=== PATIENT | male | born 1960 | race Caucasian/White ===

== ENCOUNTER 2018-09-07 09:51 | Outpatient (CLI) | payer BC, SELFPAY ==
[2018-09-07 11:38] LABS: CREATININE 0.95 mg/dL (0.70-1.30); Cholesterol 220 mg/dL (50-200); Glucose 87 mg/dL (70-100); HDL Cholesterol 71 mg/dL (40-60); LDL CHOLESTEROL 129 mg/dL (<100); Potassium 5.3 mmol/L (3.5-5.1); Triglyceride 69 mg/dL (30-150)
[2018-09-10 10:14] LABS: PSA, Screening 0.8 ng/ml (0-3.5)
[2018-09-10 14:22] LABS: Hepatitis C Ab w Rflx HCV PCR Negative (NEGAT)
== END 2018-09-07 10:11 ==
PROVIDERS: PCP Family Medicine; Visit Provider Family Medicine
DX: Z00.00 Encounter for general adult medical examination without abnormal findings
CPT/HCPCS: 36415; 80061; 82947; 83721; 84153; 86803; 82565; 84132

== ENCOUNTER 2018-10-10 14:21 | Outpatient (CLI) | payer BC, SELFPAY ==
[2018-10-10 15:29] LABS: Potassium 4.4 mmol/L (3.5-5.1)
== END 2018-10-10 14:41 ==
PROVIDERS: PCP Family Medicine; Visit Provider Family Medicine
DX: E87.5 Hyperkalemia (principal)
CPT/HCPCS: 36415; 84132

== ENCOUNTER 2019-11-19 10:17 | Outpatient (CLI) | payer BC, SELFPAY ==
[2019-11-19 12:43] LABS: CREATININE 0.93 mg/dL (0.70-1.30); Calculated LDL 138 mg/dL (<100); Cholesterol 225 mg/dL (<200); HDL Cholesterol 77 mg/dL (40-60); Potassium 4.8 mmol/L (3.5-5.1); Triglyceride 50 mg/dL (<150)
== END 2019-11-19 10:37 ==
PROVIDERS: PCP Family Medicine; Visit Provider Family Medicine
DX: E78.5 Hyperlipidemia, unspecified (principal); I10 Essential (primary) hypertension
CPT/HCPCS: 36415; 80061; 82565; 84132

== ENCOUNTER 2020-02-11 07:49 | Outpatient (CLI) | payer BC, SELFPAY ==
[2020-02-14 11:26] LABS: Patient Race White; SARS-CoV-2 RNA Undetected (Undetected); SARS-CoV-2 Specimen Source Nasal
== END 2020-02-11 08:09 ==
PROVIDERS: PCP Family Medicine; Visit Provider Family Medicine
DX: Z11.59 Encounter for screening for other viral diseases (principal)
CPT/HCPCS: U0003

== ENCOUNTER 2020-03-03 02:32 | Outpatient (CLI) | payer BC, SELFPAY ==
[2020-03-05 18:02] LABS: Patient Race White; SARS-CoV-2 RNA Undetected (Undetected); SARS-CoV-2 Specimen Source Nasal
== END 2020-03-03 02:52 ==
PROVIDERS: PCP Family Medicine; Visit Provider Family Medicine
DX: Z11.59 Encounter for screening for other viral diseases (principal)
CPT/HCPCS: U0003

== ENCOUNTER 2020-11-20 10:11 | Outpatient (CLI) | payer BC, SELFPAY ==
[2020-11-20 13:24] LABS: CREATININE 0.9 mg/dL (0.70-1.30); Potassium 4.2 mmol/L (3.5-5.1)
== END 2020-11-20 10:12 | disposition home or self-care (01) ==
LOC: LOS 10:11
PROVIDERS: PCP Family Medicine; Visit Provider Family Medicine
DX: E11.65 Type 2 diabetes mellitus with hyperglycemia (principal); I10 Essential (primary) hypertension
CPT/HCPCS: 36415; 82565; 84132

== ENCOUNTER 2021-08-30 20:28 | Outpatient (REF) | payer BC, SELFPAY ==
[2021-09-01 11:22] LABS: COVID-19 RT-PCR UVMMC Result Positive (Negative)
== END 2021-08-30 20:29 | disposition home or self-care (01) ==
LOC: LBN 20:28
PROVIDERS: PCP Family Medicine; Visit Provider Family Medicine
DX: Z20.822 Contact with and (suspected) exposure to COVID-19 (principal); M79.18 Myalgia, other site
CPT/HCPCS: U0003

== ENCOUNTER 2022-03-17 15:35 | Outpatient (CLI) | payer BC, SELFPAY ==
[2022-03-17 16:13] LABS: CREATININE 0.9 mg/dL (0.70-1.30); Calculated LDL 162 mg/dL (<100); Cholesterol 264 mg/dL (<200); Estimated GFR 96.57 (mL/min/1.73m2); HDL Cholesterol 89 mg/dL (40-60); Potassium 4.3 mmol/L (3.5-5.1); Triglyceride 66 mg/dL (<150)
== END 2022-03-17 15:36 | disposition home or self-care (01) ==
LOC: LBO 15:36
PROVIDERS: PCP Family Medicine; Visit Provider Family Medicine
DX: I10 Essential (primary) hypertension (principal); E78.5 Hyperlipidemia, unspecified
CPT/HCPCS: 36415; 80061; 82565; 84132

== ENCOUNTER 2022-07-13 03:19 | Outpatient (CLI) | payer BC, SELFPAY ==
[2022-07-13 08:48] LABS: ALT 38 U/L (16-63); AST 19 U/L (15-37); CREATININE 0.9 mg/dL (0.70-1.30); Calculated LDL 87 mg/dL (<100); Cholesterol 172 mg/dL (<200); Estimated GFR 95.97 (mL/min/1.73m2); HDL Cholesterol 75 mg/dL (40-60); Potassium 4.2 mmol/L (3.5-5.1); Triglyceride 54 mg/dL (<150)
== END 2022-07-13 03:20 | disposition home or self-care (01) ==
LOC: LBO 03:21
PROVIDERS: PCP Family Medicine; Visit Provider Family Medicine
DX: I10 Essential (primary) hypertension (principal); E78.5 Hyperlipidemia, unspecified; K76.0 Fatty (change of) liver, not elsewhere classified
CPT/HCPCS: 36415; 80061; 82565; 84132; 84450; 84460

== ENCOUNTER 2023-04-04 03:50 | Outpatient (CLI) | payer BC, SELFPAY ==
[2023-04-04 08:30] LABS: Anion Gap 4.1 mmol/L (3-11); BUN 13 mg/dL (7-18); CO2 32.9 mmol/L (21.0-32.0); CREATININE 0.9 mg/dL (0.70-1.30); Calculated LDL 82 mg/dL (<100); Chloride 97 mmol/L (98-107); Cholesterol 185 mg/dL (<200); Estimated GFR 95.97 (mL/min/1.73m2); Glucose 93 mg/dL (74-106); HDL Cholesterol 88 mg/dL (40-60); Potassium 3.9 mmol/L (3.5-5.1); Sodium 134 mmol/L (136-145); Triglyceride 77 mg/dL (<150)
== END 2023-04-04 03:51 | disposition home or self-care (01) ==
PROVIDERS: PCP Family Medicine; Visit Provider Family Medicine
DX: E78.5 Hyperlipidemia, unspecified (principal); E87.1 Hypo-osmolality and hyponatremia
CPT/HCPCS: 36415; 80048; 80061

== ENCOUNTER 2023-07-07 11:32 | Outpatient (CLI) | payer BC, SELFPAY ==
[2023-07-07 12:48] LABS: Abs Immature Grans 0.04 10^3/uL (0.0-0.06); Absolute Basophil Count 0.09 10^3/uL (0.0-0.2); Absolute Eosinophil Count 0.21 10^3/uL (0.0-0.7); Absolute Lymphocyte Count 1.86 10^3/uL (1.2-3.4); Absolute Monocyte Count 0.69 10^3/uL (0.1-0.8); Basophils % 0.8; Eosinophils % 1.9; HCT 40.8 % (40.0-50.0); HGB 13.5 g/dL (13.5-17.5); Immature Grans % 0.4; Lymphocytes % 16.9; MCH 29.7 pg (27.0-33.0); MCHC 33.1 % (32.0-36.0); MCV 90 fL (80-95); Monocytes % 6.3; Neutrophils % 73.7; Platelet Count 268 10^3/uL (130-400); RBC 4.54 10^6/uL (4.36-5.78); RDW-SD 42.9 fL; WBC 11.01 10^3/uL (4.4-10.8)
[2023-07-07 12:51] LABS: Absolute Neutrophil Count 8.11 10^3/uL (1.2-6.7)
[2023-07-07 13:24] LABS: TSH (W/Ref FT4) 1.24 uIU/mL (0.36-3.74)
== END 2023-07-07 11:33 | disposition home or self-care (01) ==
LOC: LOS 11:32
PROVIDERS: PCP Family Medicine; Referring Provider Nurse Practitioner Family; Visit Provider Nurse Practitioner Family
DX: R60.0 Localized edema (principal)
CPT/HCPCS: 36415; 84443; 85025

== ENCOUNTER 2024-04-04 00:27 | Outpatient (CLI) | payer BC, SELFPAY ==
[2024-04-04 11:38] LABS: Anion Gap 8.7 mmol/L (3-11); BUN 15 mg/dL (7-18); CO2 30.3 mmol/L (21.0-32.0); CREATININE 1.1 mg/dL (0.70-1.30); Calcium 9.4 mg/dL (8.5-10.1); Chloride 99 mmol/L (98-107); Estimated GFR 74.96 (mL/min/1.73m2); Glucose 121 mg/dL (74-106); Potassium 4.1 mmol/L (3.5-5.1); Sodium 138 mmol/L (136-145)
== END 2024-04-04 00:28 | disposition home or self-care (01) ==
PROVIDERS: PCP Family Medicine; Visit Provider Family Medicine
DX: E87.1 Hypo-osmolality and hyponatremia (principal)
CPT/HCPCS: 36415; 80048